=== PATIENT | male | born 1960 | race Caucasian/White ===

== ENCOUNTER 2017-10-02 18:43 | Inpatient (IN) ==
[2017-10-02] MEDS ORDERED: Sod Chloride 0.9% Inj 1,000 ML IV.SIG ONE (19:26)
[2017-10-02] MEDS ORDERED: Sod Chloride 0.9% Inj 1,000 ML IV.SIG SCH (19:45)
--- NOTE | 2017-10-02 20:08 | ED ---
HPI General Chief complaint: Neuro Symptoms/Deficit Stated complaint: Medical/evac Time Seen by Provider: 10/02/17 19:12 History of Present Illness HPI narrative: Is a 57-year-old man presents to the emergency department brought in by his sister and use. They called the ambulance today because he was having bizarre behavior. It sounds like he has a history of psychiatric disease past as well as alcoholism. [place], but moved back down to [place] to be closer to his ex- and sister. He apparently has been sober for the past 10 years. He has been back down here about a year or so. Over the past week or so, his sister and got progressively more irrational messages, and flew down here to bring him back home. Today they report that he has been very bizarre, talking more about God in his mission, not eating or sleeping, and had a sort of anxiety attack episode where he could not get words out and was stuttering and panicky which is why they called the ambulance. He has had trouble with bizarre behavior in the past, patient self reports he has been diagnosed with bipolar disorder. He has been on medications for his mood in the past. He has never been hospitalized except for being in rehab for alcoholism. 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 Related Data Home Medications Medication Instructions Recorded Confirmed aspirin 81 mg PO DAILY 10/03/17 10/03/17 Allergies Allergy/AdvReac Type Severity Reaction Status Date / Time No Known Allergies Allergy Verified 10/02/17 18:50 Review of Systems ROS Unobtainable All other systems reviewed negative except as stated in HPI [facility] Medical History Medical History Patient denies medical problems (Acute) Surgical History Surgical History No history of previous surgery (Acute) Social History Social History Substance History: Past History Second Hand Smoke Exposure: No Smoking Status: Heavy tobacco smoker Tobacco Type: Cigarettes How Often Do You Have a Drink Containing Alcohol: Never Recent Travel in [facility] within the Last 8 Weeks: No Recent Out of Country Travel within the Last 8 Weeks: No Immunization History Tetanus Immunization: Unsure Hx Influenza Vaccine This Season: No Exam Narrative Exam Narrative: GENERAL: 57-year-old man, anxious, little bit jittery, a little bit bizarre. SKIN: Focused skin assessment warm/dry. HEAD: Atraumatic. Normocephalic. EYES: Pupils equal and round. No scleral icterus. No injection or drainage. ENT: No nasal bleeding or discharge. Mucous membranes pink and moist. NECK: Trachea midline. No JVD. CARDIOVASCULAR: Regular rate and rhythm. No murmur appreciated. RESPIRATORY: No accessory muscle use. Clear to auscultation. Breath sounds equal bilaterally. GASTROINTESTINAL: Abdomen soft, non-tender, nondistended. Hepatic and splenic margins not palpable. MUSCULOSKELETAL: No obvious deformities. No clubbing. No cyanosis. No edema. NEUROLOGICAL: Awake and alert. No obvious cranial nerve deficits. Motor grossly within normal limits. Normal speech. PSYCHIATRIC: Little bit bizarre. Very hyper muslim. Patient states this is a significant change from his baseline. Somewhat grandiose. Rapid pressured speech intermittent with periods of stuttering and tearfulness. Patient initially endorsed hallucinations, but then could not really clarify anything further. No natalia delusions. Is not clearly responding to any internal stimuli. Not frankly psychotic. Course Initial Documented Vital Signs Temperature 98.3 F 10/02/17 18:51 Pulse Rate 92 H 10/02/17 18:51 Respiratory Rate 17 10/02/17 18:51 Blood Pressure 153/86 H 10/02/17 18:51 Pulse Oximetry 97 10/02/17 18:51 Last Documented Vital Signs Temperature 98.2 F 10/04/17 05:59 Pulse Rate 85 10/04/17 05:59 Respiratory Rate 16 10/04/17 05:59 Blood Pressure 128/75 10/04/17 05:59 Pulse Oximetry 100 10/04/17 05:59 Medical Decision Making MDM Narrative Medical decision making narrative: 57-year-old man presents to the emergency department with unusual behavior and stuttering/word finding difficulties. This seems to be very psychiatric in nature. I do not think this is aphasia or neurologic. He has a prodrome of more bizarre behavior in the setting as well. Something is not really eating or sleeping. He seems grandiose and religiously preoccupied and I think he is likely manic. Will check CT had basic labs drug screen and alcohol. He denies alcohol or drug use now. Likely will need psychiatric evaluation and probable admission for stabilization. Lab Data Result diagrams: 10/02/17 19:35 10/02/17 19:35 Lab Results 10/02/17 10/02/17 10/02/17 Range/Units 19:35 19:35 19:35 WBC 7.1 (4.0-11.0) th/mm3 RBC 4.85 (4.50-5.90) mil/mm3 Hgb 15.2 (13.0-17.0) gm/dL Hct 43.7 (39.0-51.0) % MCV 90.2 (80.0-100.0) fL MCH 31.4 (27.0-34.0) pg MCHC 34.8 (32.0-36.0) % RDW 13.5 (11.6-17.2) % Plt Count 204 (150-450) th/mm3 MPV 8.2 (7.0-11.0) fL Neut % (Auto) 59.9 (16.0-70.0) % Lymph % (Auto) 32.2 (9.0-44.0) % Kings % (Auto) 6.6 (0.0-8.0) % Eos % (Auto) 0.8 (0.0-4.0) % Baso % (Auto) 0.5 (0.0-2.0) % Neut # (Auto) 4.2 (1.8-7.7) th/mm3 Lymph # (Auto) 2.3 (1.0-4.8) th/mm3 Kings # (Auto) 0.5 (0.0-0.9) th/mm3 Eos # (Auto) 0.1 (0.0-0.4) th/mm3 Baso # (Auto) 0.0 (0.0-0.2) th/mm3 WBC Differential . Differential Comment Auto diff final PT 10.9 (9.8-11.6) sec INR 1.1 Ratio APTT 27.8 (24.3-30.1) sec Sodium 139 (136-145) meq/L Potassium 3.4 L (3.5-5.1) meq/L Chloride 107 (98-107) meq/L Carbon Dioxide 21.1 (21.0-32.0) meq/L Anion Gap 11 (5-15) meq/L BUN 13 (7-18) mg/dL Creatinine 0.67 (0.60-1.30) mg/dL Estimated GFR Greater than 89 (>89) mL/min POC Glucose (68-110) mg/dl Random Glucose 86 (74-106) mg/dL Calcium 8.5 (8.5-10.1) mg/dL Total Bilirubin 0.4 (0.2-1.0) mg/dL AST 27 (15-37) U/L ALT 27 (12-78) U/L Alkaline Phosphatase 84 (45-117) U/L Troponin I Less than 0.02 L (0.02-0.05) ng/mL Total Protein 7.4 (6.4-8.2) g/dL Albumin 4.1 (3.4-5.0) g/dL Urine Color (Yellw/Straw) Urine Clarity (Clear) Urine pH (5.0-8.5) Ur Specific Grant (1.002-1.035) Urine Protein (Neg-Trace) mg/dL Urine Glucose (UA) (Negative) mg/dL Urine Ketones (Negative) mg/dL Urine Occult Blood (Negative) Urine Nitrate (Negative) Urine Bilirubin (Negative) Urine Urobilinogen (Less than 2) mg/dL Ur Leukocyte Esterase (Negative) Urine RBC (0-3) /hpf Urine WBC (0-5) /hpf Urine Mucus (Occasional) /lpf Micro UA Comment Urine Culture Comments Urine Opiates Screen (Neg) Ur Barbiturates Screen (Neg) Ur Amphetamines Screen (Neg) U Benzodiazepines Scrn (Neg) Urine Cocaine Screen (Neg) U Cannabinoids Screen (Neg) Serum Alcohol Less than 3 (0-5) mg/dL Blood Type Blood Type Recheck Antibody Screen 10/02/17 10/02/17 10/02/17 Range/Units 19:35 19:49 19:55 WBC (4.0-11.0) th/mm3 RBC (4.50-5.90) mil/mm3 Hgb (13.0-17.0) gm/dL Hct (39.0-51.0) % MCV (80.0-100.0) fL MCH (27.0-34.0) pg MCHC (32.0-36.0) % RDW (11.6-17.2) % Plt Count (150-450) th/mm3 MPV (7.0-11.0) fL Neut % (Auto) (16.0-70.0) % Lymph % (Auto) (9.0-44.0) % Kings % (Auto) (0.0-8.0) % Eos % (Auto) (0.0-4.0) % Baso % (Auto) (0.0-2.0) % Neut # (Auto) (1.8-7.7) th/mm3 Lymph # (Auto) (1.0-4.8) th/mm3 Kings # (Auto) (0.0-0.9) th/mm3 Eos # (Auto) (0.0-0.4) th/mm3 Baso # (Auto) (0.0-0.2) th/mm3 WBC Differential Differential Comment PT (9.8-11.6) sec INR Ratio APTT (24.3-30.1) sec Sodium (136-145) meq/L Potassium (3.5-5.1) meq/L Chloride (98-107) meq/L Carbon Dioxide (21.0-32.0) meq/L Anion Gap (5-15) meq/L BUN (7-18) mg/dL Creatinine (0.60-1.30) mg/dL Estimated GFR (>89) mL/min POC Glucose 84 (68-110) mg/dl Random Glucose (74-106) mg/dL Calcium (8.5-10.1) mg/dL Total Bilirubin (0.2-1.0) mg/dL AST (15-37) U/L ALT (12-78) U/L Alkaline Phosphatase (45-117) U/L Troponin I (0.02-0.05) ng/mL Total Protein (6.4-8.2) g/dL Albumin (3.4-5.0) g/dL Urine Color Deisy (Yellw/Straw) Urine Clarity Hazy H (Clear) Urine pH 5.0 (5.0-8.5) Ur Specific Grant 1.030 (1.002-1.035) Urine Protein Negative (Neg-Trace) mg/dL Urine Glucose (UA) Negative (Negative) mg/dL Urine Ketones 20 (Negative) mg/dL Urine Occult Blood Negative (Negative) Urine Nitrate Negative (Negative) Urine Bilirubin Negative (Negative) Urine Urobilinogen 4 or greater (Less than 2) mg/dL Ur Leukocyte Esterase Negative (Negative) Urine RBC 1 (0-3) /hpf Urine WBC 1 (0-5) /hpf Urine Mucus Few H (Occasional) /lpf Micro UA Comment Culture not ind Urine Culture Comments Culture not ind Urine Opiates Screen (Neg) Ur Barbiturates Screen (Neg) Ur Amphetamines Screen (Neg) U Benzodiazepines Scrn (Neg) Urine Cocaine Screen (Neg) U Cannabinoids Screen (Neg) Serum Alcohol (0-5) mg/dL Blood Type O Positive Blood Type Recheck Required Antibody Screen Negative 10/02/17 Range/Units 19:55 WBC (4.0-11.0) th/mm3 RBC (4.50-5.90) mil/mm3 Hgb (13.0-17.0) gm/dL Hct (39.0-51.0) % MCV (80.0-100.0) fL MCH (27.0-34.0) pg MCHC (32.0-36.0) % RDW (11.6-17.2) % Plt Count (150-450) th/mm3 MPV (7.0-11.0) fL Neut % (Auto) (16.0-70.0) % Lymph % (Auto) (9.0-44.0) % Kings % (Auto) (0.0-8.0) % Eos % (Auto) (0.0-4.0) % Baso % (Auto) (0.0-2.0) % Neut # (Auto) (1.8-7.7) th/mm3 Lymph # (Auto) (1.0-4.8) th/mm3 Kings # (Auto) (0.0-0.9) th/mm3 Eos # (Auto) (0.0-0.4) th/mm3 Baso # (Auto) (0.0-0.2) th/mm3 WBC Differential Differential Comment PT (9.8-11.6) sec INR Ratio APTT (24.3-30.1) sec Sodium (136-145) meq/L Potassium (3.5-5.1) meq/L Chloride (98-107) meq/L Carbon Dioxide (21.0-32.0) meq/L Anion Gap (5-15) meq/L BUN (7-18) mg/dL Creatinine (0.60-1.30) mg/dL Estimated GFR (>89) mL/min POC Glucose (68-110) mg/dl Random Glucose (74-106) mg/dL Calcium (8.5-10.1) mg/dL Total Bilirubin (0.2-1.0) mg/dL AST (15-37) U/L ALT (12-78) U/L Alkaline Phosphatase (45-117) U/L Troponin I (0.02-0.05) ng/mL Total Protein (6.4-8.2) g/dL Albumin (3.4-5.0) g/dL Urine Color (Yellw/Straw) Urine Clarity (Clear) Urine pH (5.0-8.5) Ur Specific Grant (1.002-1.035) Urine Protein (Neg-Trace) mg/dL Urine Glucose (UA) (Negative) mg/dL Urine Ketones (Negative) mg/dL Urine Occult Blood (Negative) Urine Nitrate (Negative) Urine Bilirubin (Negative) Urine Urobilinogen (Less than 2) mg/dL Ur Leukocyte Esterase (Negative) Urine RBC (0-3) /hpf Urine WBC (0-5) /hpf Urine Mucus (Occasional) /lpf Micro UA Comment Urine Culture Comments Urine Opiates Screen Neg (Neg) Ur Barbiturates Screen Neg (Neg) Ur Amphetamines Screen Neg (Neg) U Benzodiazepines Scrn Neg (Neg) Urine Cocaine Screen Neg (Neg) U Cannabinoids Screen Pos H (Neg) Serum Alcohol (0-5) mg/dL Blood Type Blood Type Recheck Antibody Screen Imaging Data Radiologist's impression: Chest X-Ray 10/02/17 19:26 CONCLUSION: Negative for an acute process Head CT 10/02/17 19:26 CONCLUSION: 1. Negative for an acute process. . ECG Data EKG Prior to Arrival: No Attestation: I personally reviewed and interpreted this ECG as follows: Interpretation: Normal sinus rhythm at a rate of 77, little bit of sinus arrhythmia, no acute ischemia. Discharge Plan Discharge Disposition Patient Disposition: 30 Still Patient Physicians Team ED Provider: Seferino Briones Primary Care Provider: Primary Care Mariana Cook Attending Provider: Jimmy Truong Other Providers: Doug Fletcher ; Shimon Loera Discharge Interventions Interventions: ED Discharge Assessment Last Done: 10/03/17 14:53 Vital Signs Last Done: 10/03/17 09:00 Status ED Status: Left Department Discharge Information Discharge Date/Time: 10/03/17 14:56
--- NOTE | 2017-10-02 20:27 | XR ---
EXAM DATE: 10/02/2017 8:07 PM EDT AGE/SEX: 57 years / Male INDICATIONS: CVA. Patient suddenly started stuttering while talking earlier today. CLINICAL DATA: This is the patient's initial encounter. Patient reports that signs and symptoms have been present for 1 day and indicates a pain score of 0/10. MEDICAL/SURGICAL HISTORY: None. None. COMPARISON: No prior exams available for comparison. FINDINGS: A single AP view of the chest demonstrates the lungs to be symmetrically aerated without evidence of mass, infiltrate or effusion. The cardiomediastinal contours are unremarkable. Osseous structures a re intact. CONCLUSION: Negative for an acute process Electronically signed by: Kevin Cooper MD 10/02/2017 8:26 PM EDT
[2017-10-02 20:28] LABS: Baso % (Auto) 0.5 % (0.0-2.0); Eos # (Auto) 0.1 th/mm3 (0.0-0.4); Eos % (Auto) 0.8 % (0.0-4.0); Hematocrit 43.7 % (39.0-51.0); Hemoglobin 15.2 gm/dL (13.0-17.0); Lymph # (Auto) 2.3 th/mm3 (1.0-4.8); Lymph % (Auto) 32.2 % (9.0-44.0); Mean Corpuscular HGB Conc 34.8 % (32.0-36.0); Mean Corpuscular Hemoglobin 31.4 pg (27.0-34.0); Mean Corpuscular Volume 90.2 fL (80.0-100.0); Mean Platelet Volume 8.2 fL (7.0-11.0); Mono # (Auto) 0.5 th/mm3 (0.0-0.9); Mono % (Auto) 6.6 % (0.0-8.0); Neut # (Auto) 4.2 th/mm3 (1.8-7.7); Neut % (Auto) 59.9 % (16.0-70.0); Platelet Count 204 th/mm3 (150-450); Red Blood Count 4.85 mil/mm3 (4.50-5.90); Red Cell Distribution Width 13.5 % (11.6-17.2); White Blood Count 7.1 th/mm3 (4.0-11.0)
[2017-10-02 20:32] LABS: Bilirubin,Urine Negative (Negative); Clarity,Urine Hazy (Clear); Color,Urine Amber (Yellw/Straw); Glucose,Urine (UA) Negative (Negative); Leukocyte Esterase,Urine Negative (Negative); Mucus,Urine Few /lpf (Occasional); Nitrite,Urine Negative (Negative); Urobilinogen,Urine 4 or Greater mg/dL (Less than 2)
--- NOTE | 2017-10-02 20:32 | CT ---
EXAM DATE: 10/02/2017 8:08 PM EDT AGE/SEX: 57 years / Male INDICATIONS: Altered mental status. CLINICAL DATA: This is the patient's initial encounter. Patient reports that signs and symptoms have been present for 1 day and indicates a pain score of 0/10. MEDICAL/SURGICAL HISTORY: None. None. RADIATION DOSE: 56.25 CTDI (mGy) COMPARISON: No prior exams available for comparison. TECHNIQUE: CT of the head without contrast. Using automated exposure control and adjustment of the mA and/or kV according to patient size, radiation dose was kept as low as reasonably achievable to ob tain optimal diagnostic quality images. DICOM format image data is available electronically for revi ew and comparison. FINDINGS: Cerebrum: The ventricles are normal for age. No evidence of midline shift, mass lesion, hemorrhage or acute infarction. No extraaxial fluid collections are seen. Posterior Fossa: The cerebellum and brainstem are intact. The 4th ventricle is midline. The cerebe llopontine angle is unremarkable. Extracranial: The visualized portion of the orbits is intact. Skull: The calvaria is intact. No evidence of skull fracture. CONCLUSION: 1. Negative for an acute process. . Electronically signed by: Kevin Cooper MD 10/02/2017 8:31 PM EDT
[2017-10-02 20:35] LABS: Amphetamine Screen,Urine Neg (Neg); Barbiturate Screen,Urine Neg (Neg); Cannabinoid Screen,Urine Pos (Neg); Cocaine Screen,Urine Neg (Neg)
[2017-10-02 20:38] LABS: Opiate Screen,Urine Neg (Neg)
[2017-10-02 20:40] LABS: Activated Partial Thrombo Time 27.8 sec (24.3-30.1); INR 1.1 Ratio; Prothrombin Time 10.9 sec (9.8-11.6)
[2017-10-02 20:46] LABS: Albumin 4.1 g/dL (3.4-5.0); Anion Gap 11 meq/L (5-15); Aspartate Aminotransferase 27 U/L (15-37); Blood Urea Nitrogen 13 mg/dL (7-18); Calcium 8.5 mg/dL (8.5-10.1); Carbon Dioxide 21.1 meq/L (21.0-32.0); Chloride 107 meq/L (98-107); Glomerular Filtration Rate Greater Than 89 mL/min (>89); Glucose,Random 86 mg/dL (74-106); Potassium 3.4 meq/L (3.5-5.1); Sodium 139 meq/L (136-145)
[2017-10-02 20:47] LABS: Alanine Aminotransferase 27 U/L (12-78)
[2017-10-02 20:50] LABS: Alkaline Phosphatase 84 U/L (45-117); Total Protein 7.4 g/dL (6.4-8.2)
--- NOTE | 2017-10-03 11:14 | ED ---
HPI - Psych - General Source: patient Mode of arrival: ambulatory Limitations: no limitations - History of Present Illness complaint: feels depressed Onset (ago): unknown Duration: getting worse History of same: Yes Relieving factors: none Exacerbating factors: none Associated psychiatric symptoms: none Associated symptoms: denies other symptoms - General Chief Complaint: Neuro Symptoms/Deficit Stated Complaint: Medical/evac Time Seen by Provider: 10/02/17 19:12 - History of Present Illness HPI Narrative: This is a 57-year-old , male who presents voluntarily to this facility for what his sister reports is increasing bizarre behavior. Patient is previously unknown to this facility. Reviewed electronic medical record, labs, and discussed case with staff. Patient's toxicology screen is positive for cannabinoids. Patient was assessed in his room in the main ED. He is found to be awake, alert, and oriented 4. He endorses intermittent suicidal ideation however, he denies it at this moment. He does state that he would never "kill myself". He denies homicidal ideation. He reports intermittent auditory hallucinations but then goes on later to state that he feels it is more of an internal dialogue with himself. He endorses visual hallucinations however, when asked to elaborate he states, "sometimes I do see shadows but I think everyone does". He does exhibit some paranoid delusions stating that he believes his "boss his from [facility]Note 3] and her sisters are crazy and they are putting something in my food and cigarettes, I think they are trying to poison me." His speech is rapid and somewhat pressured. During the evaluation he is extremely labile in his mood and affect. He initially was quite pleasant and upbeat but then later in the conversation he seemed to have some thought blocking. He began to exhibit the stuttering which had been reported by his sister and himself. When asked what happened he stated that he has "racing thoughts". Later in the interview he put his head down and began crying and became distraught. When asked if he feels safe here he responded "yes, I feel safe and I feel like someone is going to take me away from it". When asked why he was here the patient responded, "I was stuttering and I kept saying uh, I could not say what I wanted. My sister will not listen to me and sometimes when she won't listen to me I have trouble finding my words". He denies any previous suicidal attempts although he does have a brother whom he reports attempted suicide. He also relays that his daughter has a diagnosis of Bipolar Disorder. He denies any previous inpatient admissions for psychiatric issues however, he does state that he has been treated on two different occasions outpatient for what he describes as "anxiety and a nervous breakdown" . He states that both times he was started on a medication which caused him to have diarrhea so he stopped taking them. He was unable to relay the name of the medication. When asked about a strong conviction that he would "never kill myself". He initially began having conversation about how people are " repressed and kept down in life" that did not seem apropos to the question at hand. I repeated the question and again got the same answer. I attempted to rephrase it at which point I mentioned that some people due to yarsanism state that they would never kill themselves at which point he exclaimed "God". When asked if he was strong in his priscila he responded "I have just come into it". He advises that he lives with a "longtime friend" who attends [employer] and he intends to start going with her. 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 He does advise he had a previous history of chronic alcoholism and his last drink was August [id number]. He also admits to heavy illicit substance use in the past but, denies using drugs at this time. Again, his tox screen is positive for cannabinoids. He states that he completed the 12th grade and attended some trade school. He reports that he has trouble sleeping and only sleeps approximately 2-4 hours per night and has had a decreased appetite. (Charu Garzon) - Related Data Home Medications Medication Instructions Recorded Confirmed aspirin 81 mg PO DAILY 10/03/17 10/03/17 Allergies Allergy/AdvReac Type Severity Reaction Status Date / Time No Known Allergies Allergy Verified 10/02/17 18:50 Review of Systems All other systems reviewed negative except as stated in HPI [facility] - History History Provided By: Patient - Medical History Medical History: Medical History (Last Reviewed 10/03/17 @ 11:11 by Charu Garzon [facility]) Patient denies medical problems - Surgical History Surgical History: Surgical History (Last Reviewed 10/03/17 @ 11:11 by TAVON Alejandro) No history of previous surgery - Tobacco History Second Hand Smoke Exposure: No Smoking Status: Never smoker - Alcohol History How Often Do You Have a Drink Containing Alcohol: Never - Substance Use History Substance History: No History of Abuse - Travel History Recent Travel in the [place] Within the Last 8 Weeks: No Recent Travel Out of the Country Within the Last 8 Weeks: No - Immunization History Tetanus Immunization: Unsure Hx Influenza Vaccine This Season: No Psychiatric History - Psychiatric History Psychiatric Treatment History: History Substance Abuse Treatment, History of Community Mental Health Treatment, Denies Previous Treatment History of Inpatient Treatment: No Firearms in Home: No - Legal History Multiple DUIs in the past. (Charu Garzon) - Family Psychiatric History Brother attempted suicide. Daughter diagnosed with bipolar disorder. (Charu Garzon) Physical Exam - General Limitations: no limitations General appearance: alert - Head Head exam: atraumatic - Expanded Neurological Exam Eye Opening: Spontaneous Verbal Response: Oriented Motor Response: Obey commands Glascow Coma Scale Total: 15 - Psychiatric Psychiatric exam: Present: manic Mental Status Examination Appearance: Disheveled Consciousness: Alert Orientation: x4 Motor Activity: Normal gait Speech: Pressured, Rapid, Stuttering (at times) Language: Other (patient speaking fluently ) Fund of Knowledge: Adequate Attention and Concentration: Easily distracted Memory: Unremarkable Mood: Anxious, Manic Affect: Labile, Anxious Thought Process & Associations: Circumstantial, Tangential Thought Content: Racing thoughts, Delusional Hallucination Type: None Delusion Type: Paranoid Suicidal Ideation: No Suicidal Plan: No Suicidal Intention: No Homicidal Ideation: No Homicidal Plan: No Homicidal Intention: No Insight: Fair Judgment: Impulsive Initial Documented Vital Signs Temperature 98.3 F 10/02/17 18:51 Pulse Rate 92 H 10/02/17 18:51 Respiratory Rate 17 10/02/17 18:51 Blood Pressure 153/86 H 10/02/17 18:51 Pulse Oximetry 97 10/02/17 18:51 Last Documented Vital Signs Temperature 98.1 F 10/03/17 09:00 Pulse Rate 78 10/03/17 09:00 Respiratory Rate 16 10/03/17 09:00 Blood Pressure 133/81 10/03/17 09:00 Pulse Oximetry 99 10/03/17 09:00 MDM - Psych - Diagnosis (1) Kat Status: Acute - Differential Diagnosis Likely: acute psychosis, bipolar disorder - Lab Data Result diagrams: 10/02/17 19:35 10/02/17 19:35 - [facility] Narrative Medical decision making narrative: Given the patient's intermittent disorganized state, his apparent paranoid delusions, and his family's statement that he has had a dramatic recent change he [facility] for further evaluation and treatment as deemed necessary. I have obtained consent from the patient for medications and will start him on a 25 mg PO AM and 50 mg PO HS dose of Seroquel to target his insomnia and manic symptoms, as well as the paranoid delusion. Consulted with Dr Truong who concurs with this treatment plan. (Charu Garzon) - Lab Data Lab Results 10/02/17 10/02/17 10/02/17 Range/Units 19:35 19:35 19:35 WBC 7.1 (4.0-11.0) th/mm3 RBC 4.85 (4.50-5.90) mil/mm3 Hgb 15.2 (13.0-17.0) gm/dL Hct 43.7 (39.0-51.0) % MCV 90.2 (80.0-100.0) fL MCH 31.4 (27.0-34.0) pg MCHC 34.8 (32.0-36.0) % RDW 13.5 (11.6-17.2) % Plt Count 204 (150-450) th/mm3 MPV 8.2 (7.0-11.0) fL Neut % (Auto) 59.9 (16.0-70.0) % Lymph % (Auto) 32.2 (9.0-44.0) % Park % (Auto) 6.6 (0.0-8.0) % Eos % (Auto) 0.8 (0.0-4.0) % Baso % (Auto) 0.5 (0.0-2.0) % Neut # (Auto) 4.2 (1.8-7.7) th/mm3 Lymph # (Auto) 2.3 (1.0-4.8) th/mm3 Park # (Auto) 0.5 (0.0-0.9) th/mm3 Eos # (Auto) 0.1 (0.0-0.4) th/mm3 Baso # (Auto) 0.0 (0.0-0.2) th/mm3 WBC Differential . Differential Comment Auto diff final PT 10.9 (9.8-11.6) sec INR 1.1 Ratio APTT 27.8 (24.3-30.1) sec Sodium 139 (136-145) meq/L Potassium 3.4 L (3.5-5.1) meq/L Chloride 107 (98-107) meq/L Carbon Dioxide 21.1 (21.0-32.0) meq/L Anion Gap 11 (5-15) meq/L BUN 13 (7-18) mg/dL Creatinine 0.67 (0.60-1.30) mg/dL Estimated GFR Greater than 89 (>89) mL/min POC Glucose (68-110) mg/dl Random Glucose 86 (74-106) mg/dL Calcium 8.5 (8.5-10.1) mg/dL Total Bilirubin 0.4 (0.2-1.0) mg/dL AST 27 (15-37) U/L ALT 27 (12-78) U/L Alkaline Phosphatase 84 (45-117) U/L Troponin I Less than 0.02 L (0.02-0.05) ng/mL Total Protein 7.4 (6.4-8.2) g/dL Albumin 4.1 (3.4-5.0) g/dL Urine Color (Yellw/Straw) Urine Clarity (Clear) Urine pH (5.0-8.5) Ur Specific Bonner (1.002-1.035) Urine Protein (Neg-Trace) mg/dL Urine Glucose (UA) (Negative) mg/dL Urine Ketones (Negative) mg/dL Urine Occult Blood (Negative) Urine Nitrate (Negative) Urine Bilirubin (Negative) Urine Urobilinogen (Less than 2) mg/dL Ur Leukocyte Esterase (Negative) Urine RBC (0-3) /hpf Urine WBC (0-5) /hpf Urine Mucus (Occasional) /lpf Micro UA Comment Urine Culture Comments Urine Opiates Screen (Neg) Ur Barbiturates Screen (Neg) Ur Amphetamines Screen (Neg) U Benzodiazepines Scrn (Neg) Urine Cocaine Screen (Neg) U Cannabinoids Screen (Neg) Serum Alcohol Less than 3 (0-5) mg/dL Blood Type Blood Type Recheck Antibody Screen 10/02/17 10/02/17 10/02/17 Range/Units 19:35 19:49 19:55 WBC (4.0-11.0) th/mm3 RBC (4.50-5.90) mil/mm3 Hgb (13.0-17.0) gm/dL Hct (39.0-51.0) % MCV (80.0-100.0) fL MCH (27.0-34.0) pg MCHC (32.0-36.0) % RDW (11.6-17.2) % Plt Count (150-450) th/mm3 MPV (7.0-11.0) fL Neut % (Auto) (16.0-70.0) % Lymph % (Auto) (9.0-44.0) % Park % (Auto) (0.0-8.0) % Eos % (Auto) (0.0-4.0) % Baso % (Auto) (0.0-2.0) % Neut # (Auto) (1.8-7.7) th/mm3 Lymph # (Auto) (1.0-4.8) th/mm3 Park # (Auto) (0.0-0.9) th/mm3 Eos # (Auto) (0.0-0.4) th/mm3 Baso # (Auto) (0.0-0.2) th/mm3 WBC Differential Differential Comment PT (9.8-11.6) sec INR Ratio APTT (24.3-30.1) sec Sodium (136-145) meq/L Potassium (3.5-5.1) meq/L Chloride (98-107) meq/L Carbon Dioxide (21.0-32.0) meq/L Anion Gap (5-15) meq/L BUN (7-18) mg/dL Creatinine (0.60-1.30) mg/dL Estimated GFR (>89) mL/min POC Glucose 84 (68-110) mg/dl Random Glucose (74-106) mg/dL Calcium (8.5-10.1) mg/dL Total Bilirubin (0.2-1.0) mg/dL AST (15-37) U/L ALT (12-78) U/L Alkaline Phosphatase (45-117) U/L Troponin I (0.02-0.05) ng/mL Total Protein (6.4-8.2) g/dL Albumin (3.4-5.0) g/dL Urine Color Deisy (Yellw/Straw) Urine Clarity Hazy H (Clear) Urine pH 5.0 (5.0-8.5) Ur Specific Bonner 1.030 (1.002-1.035) Urine Protein Negative (Neg-Trace) mg/dL Urine Glucose (UA) Negative (Negative) mg/dL Urine Ketones 20 (Negative) mg/dL Urine Occult Blood Negative (Negative) Urine Nitrate Negative (Negative) Urine Bilirubin Negative (Negative) Urine Urobilinogen 4 or greater (Less than 2) mg/dL Ur Leukocyte Esterase Negative (Negative) Urine RBC 1 (0-3) /hpf Urine WBC 1 (0-5) /hpf Urine Mucus Few H (Occasional) /lpf Micro UA Comment Culture not ind Urine Culture Comments Culture not ind Urine Opiates Screen (Neg) Ur Barbiturates Screen (Neg) Ur Amphetamines Screen (Neg) U Benzodiazepines Scrn (Neg) Urine Cocaine Screen (Neg) U Cannabinoids Screen (Neg) Serum Alcohol (0-5) mg/dL Blood Type O Positive Blood Type Recheck Required Antibody Screen Negative 10/02/17 Range/Units 19:55 WBC (4.0-11.0) th/mm3 RBC (4.50-5.90) mil/mm3 Hgb (13.0-17.0) gm/dL Hct (39.0-51.0) % MCV (80.0-100.0) fL MCH (27.0-34.0) pg MCHC (32.0-36.0) % RDW (11.6-17.2) % Plt Count (150-450) th/mm3 MPV (7.0-11.0) fL Neut % (Auto) (16.0-70.0) % Lymph % (Auto) (9.0-44.0) % Park % (Auto) (0.0-8.0) % Eos % (Auto) (0.0-4.0) % Baso % (Auto) (0.0-2.0) % Neut # (Auto) (1.8-7.7) th/mm3 Lymph # (Auto) (1.0-4.8) th/mm3 Park # (Auto) (0.0-0.9) th/mm3 Eos # (Auto) (0.0-0.4) th/mm3 Baso # (Auto) (0.0-0.2) th/mm3 WBC Differential Differential Comment PT (9.8-11.6) sec INR Ratio APTT (24.3-30.1) sec Sodium (136-145) meq/L Potassium (3.5-5.1) meq/L Chloride (98-107) meq/L Carbon Dioxide (21.0-32.0) meq/L Anion Gap (5-15) meq/L BUN (7-18) mg/dL Creatinine (0.60-1.30) mg/dL Estimated GFR (>89) mL/min POC Glucose (68-110) mg/dl Random Glucose (74-106) mg/dL Calcium (8.5-10.1) mg/dL Total Bilirubin (0.2-1.0) mg/dL AST (15-37) U/L ALT (12-78) U/L Alkaline Phosphatase (45-117) U/L Troponin I (0.02-0.05) ng/mL Total Protein (6.4-8.2) g/dL Albumin (3.4-5.0) g/dL Urine Color (Yellw/Straw) Urine Clarity (Clear) Urine pH (5.0-8.5) Ur Specific Bonner (1.002-1.035) Urine Protein (Neg-Trace) mg/dL Urine Glucose (UA) (Negative) mg/dL Urine Ketones (Negative) mg/dL Urine Occult Blood (Negative) Urine Nitrate (Negative) Urine Bilirubin (Negative) Urine Urobilinogen (Less than 2) mg/dL Ur Leukocyte Esterase (Negative) Urine RBC (0-3) /hpf Urine WBC (0-5) /hpf Urine Mucus (Occasional) /lpf Micro UA Comment Urine Culture Comments Urine Opiates Screen Neg (Neg) Ur Barbiturates Screen Neg (Neg) Ur Amphetamines Screen Neg (Neg) U Benzodiazepines Scrn Neg (Neg) Urine Cocaine Screen Neg (Neg) U Cannabinoids Screen Pos H (Neg) Serum Alcohol (0-5) mg/dL Blood Type Blood Type Recheck Antibody Screen
[2017-10-03] MEDS ORDERED: LORazepam 1 MG Tablet PO PRN (11:32)
[2017-10-03] MEDS ORDERED: Aluminum/Magnesium/Simethacone Susp 30 ML UDC PO PRN (11:32)
--- NOTE | 2017-10-03 22:01 | ECG ---
Date Performed: 10/02/2017 Time Performed: 21:53:17 PTAGE: 57 years EKG: Sinus rhythm WITH SINUS ARRHYTHMIA POSSIBLE RIGHT VENTRICULAR CONDUCTION DELAY BORDERLINE ECG NO PREVIOUS TRACING DOCTOR: Hector Alejo Interpretating Date/Time 10/03/2017 21:59:30
[2017-10-04 08:31] LABS: Anion Gap 8 meq/L (5-15); Blood Urea Nitrogen 7 mg/dL (7-18); Calcium 8.8 mg/dL (8.5-10.1); Carbon Dioxide 25.5 meq/L (21.0-32.0); Chloride 109 meq/L (98-107); Cholesterol 114 mg/dL (120-200); Glomerular Filtration Rate Greater Than 89 mL/min (>89); Glucose,Random 92 mg/dL (74-106); Potassium 3.5 meq/L (3.5-5.1); Sodium 142 meq/L (136-145)
[2017-10-04 08:32] LABS: Triglycerides 68 mg/dL (42-150)
[2017-10-04 08:34] LABS: Chol/HDL Ratio 2.03 Ratio; HDL Cholesterol 56.1 mg/dL (40.0-60.0); LDL Cholesterol,Calculated 44 mg/dL (0-99)
--- NOTE | 2017-10-04 09:10 | P.CONNEU ---
History of Present Illness Service: Neurology Primary Care Provider: No Primary Care Physician Chief Complaint: Question seizure History of Present Illness: 57-year-old male admitted to psych inpatient [facility] for delusional behavior. Flight of ideas grandiose thoughts noted by family brought in further evaluation. Neurology consulted for questionable seizure. CT brain scan negative for any acute lesion. Labs have been normal except urine drug screen positive for cannabis. Review of Systems All other systems reviewed negative except as stated in HPI [facility] - History History Provided By: Patient - Medical History Medical History: Medical History (Last Reviewed 10/03/17 @ 11:11 by TAVON Alejandro) Patient denies medical problems - Surgical History Surgical History: Surgical History (Last Reviewed 10/03/17 @ 11:11 by TAVON Alejandro) No history of previous surgery - Tobacco History Second Hand Smoke Exposure: No Tobacco Use In Past 30 Days: Yes Smoking Status: Heavy tobacco smoker Tobacco Type: Cigarettes - Alcohol History How Often Do You Have a Drink Containing Alcohol: Never - Substance Use History Substance History: Past History - Substance Use Type Alcohol Status: Sustained Remission Route Used: By Mouth Last Used: 10 years ago Comment: completed rehab in 2007 in [place] for etoh abuse - Travel History Recent Travel in the [facility] Within the Last 8 Weeks: No Recent Travel Out of the Country Within the Last 8 Weeks: No - Immunization History Tetanus Immunization: Unsure Hx Influenza Vaccine This Season: No Medications and Allergies Active Medications: Active Medications Al Hydrox/Mg Hydrox/Simethicone (Mag-Al Plus Susp Liq) 30 ml PO Q6H PRN PRN Reason: DYSPEPSIA Diphenhydramine HCl (Benadryl) 50 mg PO HS PRN PRN Reason: INSOMNIA Lorazepam (Ativan Inj) 1 mg IV.PUSH ONCE GINA Last Admin: 10/02/17 19:51 Dose: 1 mg Lorazepam (Ativan) 1 mg PO Q6H PRN PRN Reason: MODERATE TO SEVERE ANXIETY Last Admin: 10/04/17 00:38 Dose: 1 mg Lorazepam (Ativan Inj) 1 mg IM Q6H PRN PRN Reason: MODERATE TO SEVERE ANXIETY Nicotine (Habitrol 21 Mg Patch.24 Hr) 1 patch T-DERMAL DAILY GINA Last Admin: 10/03/17 15:39 Dose: 1 patch Patch Removal (Remove Old Patch) 1 each T-DERMAL DAILY [facility]INA Sodium Chloride (Ns Flush) 2 ml IV.FLUSH PRN PRN PRN Reason: FLUSH AFTER USING IV ACCESS Allergies Allergy/AdvReac Type Severity Reaction Status Date / Time No Known Allergies Allergy Verified 10/02/17 18:50 Home Medications Medication Instructions Recorded Confirmed Type aspirin 81 mg PO DAILY 10/03/17 10/03/17 History Exam Vital signs: Vital Signs 10/03/17 12:00 10/03/17 13:50 10/03/17 18:26 Temperature 98.4 F 98.3 F 97.4 F L Pulse Rate 80 66 93 H Respiratory Rate 18 18 Blood Pressure 146/88 H 142/80 H 144/80 H Pulse Oximetry 96 98 100 10/03/17 20:00 10/04/17 05:59 Temperature 98.2 F Pulse Rate 85 Respiratory Rate 16 Blood Pressure 128/75 Pulse Oximetry 100 100 Intake & Output 10/03/17 10/04/17 10/04/17 18:59 06:59 18:59 Weight 66.3 kg Other: Weight On Admission 66.3 kg Narrative: GENERAL: This is a well-nourished, well-developed patient, in no apparent distress.. GASTROINTESTINAL: Abdomen soft, non-tender, nondistended. Normal active bowel sounds MUSCULOSKELETAL: Extremities without clubbing, cyanosis, or edema. NEURO: Alert & Oriented to self and place. Tangential pressured speech distractible at times extraocular movements intact OU 3 2 mm no facial asymmetry tongue midline moving all 4 extremity gravity - Constitutional no acute distress - Routine HEENT Exam Head: Present: normocephalic Eye: Present: EOMI Results - Labs CBC & Chem 7: 10/02/17 19:35 10/04/17 06:55 Labs: Laboratory Results - last 24 hr 10/04/17 06:55 Sodium 142 Potassium 3.5 Chloride 109 H Carbon Dioxide 25.5 Anion Gap 8 BUN 7 Creatinine 0.66 Estimated GFR Greater than 89 Random Glucose 92 Calcium 8.8 Triglycerides 68 Cholesterol 114 L LDL Cholesterol, Calc 44 HDL Cholesterol 56.1 Cholesterol/HDL Ratio 2.03 Review/Management - Diagnosis (1) Marijuana use Code(s): F12.90 - Cannabis use, unspecified, uncomplicated Status: Acute Current Visit: Yes (2) Kat Code(s): F30.9 - Manic episode, unspecified Status: Acute Current Visit: Yes - Review/Management Plan: Appears to be primary psychiatric and not neurologic Recommendations Check EEG B12, TSH, ammonia, RPR We will follow peripherally
--- NOTE | 2017-10-04 11:45 | P.CON ---
History of Present Illness Service: Hospitalist Consult date: 10/04/17 Requesting Physician: Jimmy Truong Reason for Consult: Medical management Primary Care Provider: No Primary Care Physician Chief Complaint: Question seizure History of Present Illness: 57-year-old male who voluntarily reported to the emergency room for increasingly odd behavior. He complained of auditory hallucinations and endorsed intermittent suicidal idealization to ED staff. Self-admitted history of previous EtOH use however he quit in 2007. Positive for cannabis at admit. Denies past medical history; no prior records found. There was some question of seizure activity at admit and neurology was consulted. Patient says that he is doing well. Denies any chest pain or shortness of breath. Denies any nausea vomiting or diarrhea. Appears to be distracted and not interested in answering my questions. Nursing reports no adverse events or concerns. Review of Systems All other systems reviewed negative except as stated in HPI PMF[facility] - History History Provided By: Patient - Medical / Surgical Hx Neg / Unobtainable Medical Problems Denied: Yes Surgical History: No Previous Surgery - Medical History Medical History: Medical History (Last Reviewed 10/04/17 @ 14:04 by TAVON Meehan) Patient denies medical problems - Surgical History Surgical History: Surgical History (Last Reviewed 10/04/17 @ 14:04 by TAVON Meehan) No history of previous surgery - Family History Family History: Family History (Last Reviewed 10/04/17 @ 14:04 by TAVON Meehan) Other Bipolar disorder - Tobacco History Second Hand Smoke Exposure: No Tobacco Use In Past 30 Days: Yes Smoking Status: Heavy tobacco smoker Tobacco Type: Cigarettes - Alcohol History How Often Do You Have a Drink Containing Alcohol: Never - Substance Use History Substance History: Past History - Substance Use Type Alcohol Status: Sustained Remission Route Used: By Mouth Last Used: 10 years ago Comment: completed rehab in 2007 in [place] for etoh abuse - Travel History Recent Travel in the [place] Within the Last 8 Weeks: No Recent Travel Out of the Country Within the Last 8 Weeks: No - Immunization History Tetanus Immunization: Unsure Hx Influenza Vaccine This Season: No Medications and Allergies Active Medications: Active Medications Al Hydrox/Mg Hydrox/Simethicone (Mag-Al Plus Susp Liq) 30 ml PO Q6H PRN PRN Reason: DYSPEPSIA Diphenhydramine HCl (Benadryl) 50 mg PO HS PRN PRN Reason: INSOMNIA Lorazepam (Ativan Inj) 1 mg IV.PUSH ONCE GINA Last Admin: 10/02/17 19:51 Dose: 1 mg Lorazepam (Ativan) 1 mg PO Q6H PRN PRN Reason: MODERATE TO SEVERE ANXIETY Last Admin: 10/04/17 00:38 Dose: 1 mg Lorazepam (Ativan Inj) 1 mg IM Q6H PRN PRN Reason: MODERATE TO SEVERE ANXIETY Nicotine (Habitrol 21 Mg Patch.24 Hr) 1 patch T-DERMAL DAILY GINA Last Admin: 10/03/17 15:39 Dose: 1 patch Patch Removal (Remove Old Patch) 1 each T-DERMAL DAILY [facility] Sodium Chloride (Ns Flush) 2 ml IV.FLUSH PRN PRN PRN Reason: FLUSH AFTER USING IV ACCESS Allergies Allergy/AdvReac Type Severity Reaction Status Date / Time No Known Allergies Allergy Verified 10/02/17 18:50 Home Medications Medication Instructions Recorded Confirmed Type aspirin 81 mg PO DAILY 10/03/17 10/03/17 History Physical Exam Vital signs: Vital Signs 10/03/17 12:00 10/03/17 13:50 10/03/17 18:26 Temperature 98.4 F 98.3 F 97.4 F L Pulse Rate 80 66 93 H Respiratory Rate 18 18 Blood Pressure 146/88 H 142/80 H 144/80 H Pulse Oximetry 96 98 100 10/03/17 20:00 10/04/17 05:59 Temperature 98.2 F Pulse Rate 85 Respiratory Rate 16 Blood Pressure 128/75 Pulse Oximetry 100 100 Intake & Output 10/03/17 10/04/17 10/04/17 18:59 06:59 18:59 Weight 66.3 kg Other: Weight On Admission 66.3 kg Narrative: GENERAL: Well-nourished, well-developed adult male in no obvious distress. SKIN: Warm and dry. HEAD: Atraumatic. Normocephalic. CARDIOVASCULAR: Regular rate and rhythm. RESPIRATORY: No accessory muscle use. Clear to auscultation. Breath sounds equal bilaterally. GASTROINTESTINAL: Abdomen soft, non-tender, non- distended. Positive bowel sounds. MUSCULOSKELETAL: Extremities without clubbing, cyanosis, or edema. No obvious deformities. NEUROLOGICAL: Awake and alert. No obvious cranial nerve deficits. Motor grossly within normal limits. Normal speech. Assessment and Plan - Plan 57-year-old male who voluntarily reported to the emergency room for increasingly odd behavior. He complained of auditory hallucinations and endorsed intermittent suicidal idealization. Self-admitted history of previous EtOH use however he quit in 2007. Positive for cannabis at admit. Denies past medical history; no prior records found. Hospitalist service consulted for medical management. AMS/delusional -Seen and evaluated by neurology who concluded that patient's behavior appears to be primary psychiatric and not neurologic. Hypokalemia -K+ initially 3.4 at admit. Resolved w/out intervention to 3.5 on 10/04/17. Monitor HTN - denies hx -Mild elevation in blood pressure at admit. Resolved to WNL -likely due to agitation. DVT prophylaxis: Patient is ambulatory Discussed with: Patient and nurse Thank you for this consult. We appreciate working with you on the medical management of this patient.
[2017-10-04 12:08] LABS: C-Reactive Protein 0.4 mg/dL (0.00-0.30)
[2017-10-04 12:32] LABS: Thyroid Stimulating Hormone 0.992 uIU/mL (0.358-3.740)
--- NOTE | 2017-10-04 15:13 | P.HPPSY ---
Provisional Diagnosis Admission Date: October 03, 2017 11:42 [place].: Bipolar disorder most recent episode bhavna Competence Certification of Person's Competence To Provide Express and Informed Consent I have personally examined Jose Duenas, a person being served at [facility] on, October 04, 2017 1504. Express and informed consent means consent voluntarily given in writing, by a competent person, after sufficient explanation and disclosure of the subject matter involved to enable the person to make a knowing and willful decision without any element of force, fraud, deceit, duress, or other form of constraint or coercion. This person is 18 years of age or older, is not now known to be incompetent to consent to treatment with a guardian advocate, and does not have a health care surrogate or proxy currently making medical treatment decisions. I have found this person to be one of the following: [xxx] Competent to provide express and informed consent, as defined above, for voluntary admission to this facility and is competent to provide express and informed consent for treatment. He/she has the consistent capacity to make well reasoned, willful, and knowing decisions concerning his or her medical or mental health treatment. The person fully and consistently understands the purpose of the admission for examination/placement and is fully capable of personally exercising all rights assured under [place] [] Incompetent to provide express and informed consent to voluntary admission, and this is incompetent to provide express and informed consent to treatment. The person must be transferred to involuntary status and a petition for a guardian advocate filed with the Circuit Court. [] Refusing to provide express and informed consent to voluntary admission but is competent to provide express and informed consent for treatment. The person must be discharged or transferred to involuntary status. Form shall be completed within 24 hours of a person's arrival at the receiving facility and filed in the clinical record of each person: 1. Admitted on a voluntary basis 2. Permitted to provide express and informed consent to his/her own treatment 3. Allowed to transfer from involuntary to voluntary status 4. Prior to permitting a person to consent to his or her own treatment after having been previously found incompetent to consent to treatment. History of Present Illness Capacity: Has capacity History of Present Illness: Patient 57-year-old white male comes here voluntarily with family given the history of increased manic type behaviors patient seen screen in the ED urine toxicology positive for marijuana. At the present time patient sitting quietly in his room though his speech is somewhat pressured and it is not very rapid. Though he acknowledges racing thoughts rapid pressured speech and poor task completion, risky behaviors including spending money he cannot afford travel that is somewhat risky. He states she has had episodes of this over many years though not to the point where he is ever been hospitalized. He is vague about any auditory or visual hallucinations. Though there is some mild paranoia. He is acknowledged alcoholic that has been sober for 10 years. He is done marijuana within the past month. He is done cocaine in the past he is done hallucinogenic's in the past patient is . Though it appears to have supportive family. Patient denies any physical or sexual abuse. Denies any other significant medical issues at this time for perhaps seizure disorder. Neurology has been consulted. At this time patient meets criteria for further assessment on on a voluntary basis. We will have hospitalist consult will us neurology has consulted with us. We will start the patient on Abilify 5 mg twice daily and monitor - Inpatient Certification I certify that the inpatient services were ordered in accordance with Medicare regulations governing the order. This includes certification that hospital inpatient services are reasonable and necessary and in the case of services not specified as inpatient-only under 42 CFR 419.22(n), that they are appropriately provided as inpatient services in accordance to with the 2-midnight benchmark under 43 CFR 412.3(e) I certify that inpatient psychiatric hospital services are medically necessary. Evaluation and treatment and/or diagnostic testing are expected to improve the patient's condition. The patient needs on a daily basis, active treatment furnished directly by or requiring the supervision of inpatient psychiatric facility personnel. Estimated Total Length of Stay (Days): 7 Plans for Post Hospital Care: Not yet determined Review of Systems All other systems reviewed negative except as stated in HPI PMFSH - History History Provided By: Patient - Medical / Surgical Hx Neg / Unobtainable Medical Problems Denied: Yes - Medical History Medical History: Medical History (Last Reviewed 10/04/17 @ 14:04 by TAVON Meehan) Patient denies medical problems - Surgical History Surgical History: Surgical History (Last Reviewed 10/04/17 @ 14:04 by TAVON Meehan) No history of previous surgery - Family History Family History: Family History (Last Reviewed 10/04/17 @ 14:04 by TAVON Meehan) Other Bipolar disorder - Tobacco History Second Hand Smoke Exposure: No Tobacco Use In Past 30 Days: Yes Smoking Status: Heavy tobacco smoker Tobacco Type: Cigarettes - Alcohol History How Often Do You Have a Drink Containing Alcohol: Never - Substance Use History Substance History: Past History - Substance Use Type Alcohol Status: Sustained Remission Route Used: By Mouth Last Used: 10 years ago Comment: completed rehab in 2007 in [place] for etoh abuse - Travel History Recent Travel in the [facility] Within the Last 8 Weeks: No Recent Travel Out of the Country Within the Last 8 Weeks: No - Immunization History Tetanus Immunization: Unsure Hx Influenza Vaccine This Season: No Quality Measures - Psychiatric History Psychological trauma history: Patient denies Violence risk to others in the last 6 months: Low Violence risk to self in the last 6 months: Low - Substance Abuse History Drug or alcohol use in the past 12 months: No alcohol in 10 years, marijuana 1-2 weeks ago - Patient Strengths Patient's strengths (minimum of 2): Patient verbal able access healthcare has supportive family Medications and Allergies Active Medications: Active Medications Al Hydrox/Mg Hydrox/Simethicone (Mag-Al Plus Susp Liq) 30 ml PO Q6H PRN PRN Reason: DYSPEPSIA Diphenhydramine HCl (Benadryl) 50 mg PO HS PRN PRN Reason: INSOMNIA Lorazepam (Ativan Inj) 1 mg IV.PUSH ONCE GINA Last Admin: 10/02/17 19:51 Dose: 1 mg Lorazepam (Ativan) 1 mg PO Q6H PRN PRN Reason: MODERATE TO SEVERE ANXIETY Last Admin: 10/04/17 00:38 Dose: 1 mg Lorazepam (Ativan Inj) 1 mg IM Q6H PRN PRN Reason: MODERATE TO SEVERE ANXIETY Nicotine (Habitrol 21 Mg Patch.24 Hr) 1 patch T-DERMAL DAILY GINA Last Admin: 10/03/17 15:39 Dose: 1 patch Patch Removal (Remove Old Patch) 1 each T-DERMAL DAILY [facility] Sodium Chloride (Ns Flush) 2 ml IV.FLUSH PRN PRN PRN Reason: FLUSH AFTER USING IV ACCESS Allergies Allergy/AdvReac Type Severity Reaction Status Date / Time No Known Allergies Allergy Verified 10/02/17 18:50 Home Medications Medication Instructions Recorded Confirmed Type aspirin 81 mg PO DAILY 10/03/17 10/03/17 History Results - Labs CBC & Chem 7: 10/02/17 19:35 10/04/17 06:55 Labs: Laboratory Results - last 24 hr 10/04/17 10/04/17 10/04/17 06:55 11:18 11:18 Sodium 142 Potassium 3.5 Chloride 109 H Carbon Dioxide 25.5 Anion Gap 8 BUN 7 Creatinine 0.66 Estimated GFR Greater than 89 Random Glucose 92 Calcium 8.8 Ammonia 34 H C-Reactive Protein 0.40 H Triglycerides 68 Cholesterol 114 L LDL Cholesterol, Calc 44 HDL Cholesterol 56.1 Cholesterol/HDL Ratio 2.03 Vitamin B12 233 TSH 0.992 HIV 1&2 Ab/P24 Ag 4thGn 10/04/17 11:18 Sodium Potassium Chloride Carbon Dioxide Anion Gap BUN Creatinine Estimated GFR Random Glucose Calcium Ammonia C-Reactive Protein Triglycerides Cholesterol LDL Cholesterol, Calc HDL Cholesterol Cholesterol/HDL Ratio Vitamin B12 TSH HIV 1&2 Ab/P24 Ag 4thGn Nonreactive Exam Vital signs: Vital Signs 10/03/17 18:26 10/03/17 20:00 10/04/17 05:59 Temperature 97.4 F L 98.2 F Pulse Rate 93 H 85 Respiratory Rate 16 Blood Pressure 144/80 H 128/75 Pulse Oximetry 100 100 100 Intake & Output 10/03/17 10/04/17 10/04/17 18:59 06:59 18:59 Weight 66.3 kg Other: Weight On Admission 66.3 kg Narrative: Patient sitting quietly in his room he is in no acute distress, no complaints of chest pain no complaints of respiratory distress, no complaints of abdominal pain patient moving all 4 extremities without difficulty Mental Status Examination Appearance: Appropriate, Disheveled Consciousness: Alert Orientation: x4 Motor Activity: Normal gait Speech: Pressured, Rapid, Stuttering (at times) Language: Other (patient speaking fluently ) Fund of Knowledge: Adequate Attention and Concentration: Easily distracted Memory: Unremarkable Mood: Anxious, Manic Affect: Labile, Anxious Thought Process & Associations: Circumstantial, Tangential Thought Content: Racing thoughts, Delusional Hallucination Type: None Delusion Type: Paranoid Suicidal Ideation: No Suicidal Plan: No Suicidal Intention: No Homicidal Ideation: No Homicidal Plan: No Homicidal Intention: No Insight: Fair Judgment: Impulsive Assessment and Plan - Assessment (1) Bipolar disorder, most recent episode manic Code(s): F31.10 - Bipolar disorder, current episode manic without psychotic features, unspecified Status: Acute - Plan Plan: Estimated LOS: [5] days At this time patient meets criteria for further inpatient hospitalization on a voluntary basis. We will start him on Abilify 5 mg twice daily the hospitalist consult will us also will also attempt to get further formation from patient's family Justification for Continued Inpatient Stay: At this time patient would decompensate a place to the lower level of care Discharge Planning: To be determined Request Healthcare Surrogate/Guardian Advocate?: No
[2017-10-04 18:18] LABS: Hemoglobin A1c 5.2 % (4.3-6.0)
--- NOTE | 2017-10-04 19:46 | MR ---
EXAM DATE: 10/04/2017 7:30 PM EDT AGE/SEX: 57 years / Male INDICATIONS: CVA. CLINICAL DATA: This is the patient's initial encounter. Patient reports that signs and symptoms have been present for 1 day and indicates a pain score of 1/10. MEDICAL/SURGICAL HISTORY: None. . Left wrist sx. COMPARISON: No prior exams available for comparison. TECHNIQUE: Multiplanar, multisequence examination of the brain was performed without contrast. FINDINGS: Minimal white matter ischemic changes. No mass effect or midline shift. No hydrocephalus. No evidence for recent infarct. No sellar mass. No abnormal extra-axial fluid collection CONCLUSION: 1. No recent infarct. No mass effect or shift. No acute findings. Minimal white matter ischemic christina ges. Electronically signed by: Ramírez Hercules MD 10/04/2017 7:45 PM EDT
[2017-10-04] MEDS: ARIPiprazole 5 MG Tablet PO SCH (21:45)
[2017-10-05] MEDS: ARIPiprazole 5 MG Tablet PO SCH ×2 (09:30→20:50)
--- NOTE | 2017-10-05 10:12 | P.PN ---
Subjective Interval history: Patient is seen sitting quietly in room. He tells me he is feeling much better today and that he is happy with how the Abilify has calmed him down. It is causing a small amount of GI upset but nothing significant - he has not had any vomiting or diarrhea. He has had a good appetite. Is voiding normally. No shortness of breath or chest pain. No chills or fever. Physical Exam Vital signs: Vital Signs 10/04/17 18:05 10/05/17 04:11 10/05/17 06:22 Temperature 98.1 F 98.1 F Pulse Rate 81 85 Respiratory Rate 18 17 Blood Pressure 154/78 H 135/93 H Pulse Oximetry 99 100 98 Narrative: GENERAL: Well-nourished, well-developed adult male in no obvious distress. SKIN: Warm and dry. HEAD: Atraumatic. Normocephalic. CARDIOVASCULAR: Regular rate and rhythm. RESPIRATORY: No accessory muscle use. Clear to auscultation. Breath sounds equal bilaterally. GASTROINTESTINAL: Abdomen soft, non-tender, non- distended. Positive bowel sounds. MUSCULOSKELETAL: Extremities without clubbing, cyanosis, or edema. No obvious deformities. NEUROLOGICAL: Awake and alert. No obvious cranial nerve deficits. Results - Labs CBC & Chem 7: 10/02/17 19:35 10/04/17 06:55 Laboratory Results - last 24 hr 10/04/17 10/04/17 10/04/17 06:55 11:18 11:18 Hemoglobin A1c 5.2 Ammonia 34 H C-Reactive Protein 0.40 H Vitamin B12 233 TSH 0.992 RPR HIV 1&2 Ab/P24 Ag 4thGn 10/04/17 10/04/17 11:18 11:18 Hemoglobin A1c Ammonia C-Reactive Protein Vitamin B12 TSH RPR Nonreactive HIV 1&2 Ab/P24 Ag 4thGn Nonreactive - Imaging Impressions Head MRI 10/04/17 00:00 CONCLUSION: 1. No recent infarct. No mass effect or shift. No acute findings. Minimal white matter ischemic changes. Assessment and Plan - Plan 57-year-old male who voluntarily reported to the emergency room for increasingly odd behavior. He complained of auditory hallucinations and endorsed intermittent suicidal idealization. Self-admitted history of previous EtOH use however he quit in 2007. Positive for cannabis at admit. Denies past medical history; no prior records found. Hospitalist service consulted for medical management. AMS/delusional -Seen and evaluated by neurology who concluded that patient's behavior appears to be primary psychiatric and not neurologic. Hypokalemia -K+ initially 3.4 at admit. Resolved w/out intervention to 3.5 on 10/04/17. Monitor HTN - denies hx -Mild elevation in blood pressure at admit. Resolved to WNL -likely due to agitation. DVT prophylaxis: Patient is ambulatory Discussed with: Patient and nurse Patient appears to be stable medically. Hospitalist service will sign off. Please reconsult if needed.
--- NOTE | 2017-10-05 10:32 | ECG ---
Date Performed: 10/04/2017 Time Performed: 13:55:34 PTAGE: 57 years EKG: Sinus rhythm NORMAL ECG Since the PREVIOUS TRACING , no significant change noted PREVIOUS TRACIN10/02/2017 21.53 DOCTOR: Jennyfer Astudillo Interpretating Date/Time 10/05/2017 10:31:18
--- NOTE | 2017-10-05 12:44 | P.PNPSY ---
Subjective Remarks: Patient seen and blancas with nurse Sumaya, chart reviewed, patient compliant medications. Patient's dates he is feeling somewhat slower calm her thoughts are still fast. He is compliant with medications. He denies suicidality or voices at this time. We will discontinue all as needed Ativan orders and offer her Atarax and a as needed basis Review of Systems All other systems reviewed negative except as stated in HPI Mental Status Examination Appearance: Appropriate, Disheveled Consciousness: Alert Orientation: x4 Motor Activity: Normal gait Speech: Pressured, Rapid, Stuttering (at times) Language: Other (patient speaking fluently ) Fund of Knowledge: Adequate Attention and Concentration: Easily distracted Memory: Unremarkable Mood: Anxious (Somewhat calmer ), Manic (Somewhat calmer) Affect: Other (Good range and intensity) Thought Process & Associations: Circumstantial (Improving), Tangential ( Improving) Thought Content: Racing thoughts (Improving), Delusional (Improving) Hallucination Type: None Delusion Type: Paranoid Suicidal Ideation: No Suicidal Plan: No Suicidal Intention: No Homicidal Ideation: No Homicidal Plan: No Homicidal Intention: No Insight: Fair Judgment: Impulsive Assessment and Plan - Assessment (1) Bipolar disorder, most recent episode manic Code(s): F31.10 - Bipolar disorder, current episode manic without psychotic features, unspecified Status: Acute - Plan Plan: Patient complaint medications, the mean is softening, psychotic flavor is also softening for now continue treatment to medication adjustments above Justification for Continued Inpatient Stay: At this time patient would decompensate a place to a lower level of care Discharge Planning: To be determined Request Healthcare Surrogate/Guardian Advocate?: No
--- NOTE | 2017-10-05 19:00 | MG ---
cc: Doretha Helton MD, Dalia MD EEG NUMBER [id number] REFERRING PHYSICIAN: Dr. Fletcher. Awake, drowsy, asleep. Hyperventilation excellent effort as well as photic stimulation. MRI no infarct, no mass effect, no shift. A 57-year-old man admitted with delusional behavior, flight of ideas, grandiose thoughts, questionable seizures, history of tobacco the only past medical history. MEDICATIONS: Abilify Nicotine. DESCRIPTION OF RECORD: The patient has an alpha rhythm of 9 and 9-1/2 Hz, 20-30 microvolts, well organized symmetrical background. Photic stimulation does elicit a posterior driving response. This was done at the beginning portion of the study. No epileptiform features during that part. Hyperventilation causes a lot of myogenic artifact. Overall, good buildup, well organized symmetrical background, good effort. EKG looks sinus. No epileptiform features. IMPRESSION: Normal appearing electroencephalogram without any epileptiform features. Clinical correlation. MD LIAN Ross/ , 06:42 PM , 06:47 PM
[2017-10-06] MEDS: ARIPiprazole 5 MG Tablet PO SCH (08:42)
--- NOTE | 2017-10-06 15:04 | P.PNPSY ---
Subjective Remarks: Patient seen and blancas with nurse Keely, patient stating his thoughts are still somewhat racing and tense little better. Vague about any perceptual abnormality. Though he denies suicidality. For now we will increase Abilify to 10 mg a.m. 5 mg at bedtime continue treatment Review of Systems All other systems reviewed negative except as stated in HPI Mental Status Examination Appearance: Appropriate Consciousness: Alert Orientation: x4 Motor Activity: Normal gait Speech: Pressured, Rapid, Stuttering (Improving) Language: Adequate Fund of Knowledge: Adequate Attention and Concentration: Easily distracted (Improving) Memory: Unremarkable Mood: Anxious (Somewhat calmer ), Manic (Somewhat calmer) Affect: Other (Good range and intensity) Thought Process & Associations: Circumstantial (Improving), Tangential ( Improving) Thought Content: Racing thoughts (Improving), Delusional (Improving) Hallucination Type: None Delusion Type: Paranoid Suicidal Ideation: No Suicidal Plan: No Suicidal Intention: No Homicidal Ideation: No Homicidal Plan: No Homicidal Intention: No Insight: Fair Judgment: Impulsive Assessment and Plan - Assessment (1) Bipolar disorder, most recent episode manic Code(s): F31.10 - Bipolar disorder, current episode manic without psychotic features, unspecified Status: Acute - Plan Plan: Patient continues manic though somewhat softer, please see medication adjustment above Justification for Continued Inpatient Stay: At this time patient would decompensate a place to a lower level of care Discharge Planning: To be determined Request Healthcare Surrogate/Guardian Advocate?: No
[2017-10-06] MEDS ORDERED: ARIPiprazole 5 MG Tablet PO SCH (21:00)
[2017-10-07] MEDS: ARIPiprazole 10 MG Tablet PO SCH (09:16)
--- NOTE | 2017-10-07 14:13 | P.PNPSY ---
Subjective Remarks: Patient seen in day room with floor staff, chart reviewed, patient compliant medication. Patient states his thoughts continue to slow though she is still somewhat intense and intrusive. He denies suicidality homicidality voice or visions. For now we will increase Abilify to 10 mg twice daily. Review of Systems All other systems reviewed negative except as stated in HPI Mental Status Examination Appearance: Appropriate Consciousness: Alert Orientation: x4 Motor Activity: Normal gait Speech: Pressured, Rapid, Stuttering (Improving) Language: Adequate Fund of Knowledge: Adequate Attention and Concentration: Easily distracted (Improving) Memory: Unremarkable Mood: Anxious (Somewhat calmer ), Manic (Somewhat calmer) Affect: Other (Good range and intensity) Thought Process & Associations: Circumstantial (Improving), Tangential ( Improving) Thought Content: Racing thoughts (Improving), Delusional (Improving) Hallucination Type: None Delusion Type: Paranoid Suicidal Ideation: No Suicidal Plan: No Suicidal Intention: No Homicidal Ideation: No Homicidal Plan: No Homicidal Intention: No Insight: Fair Judgment: Impulsive Assessment and Plan - Assessment (1) Bipolar disorder, most recent episode manic Code(s): F31.10 - Bipolar disorder, current episode manic without psychotic features, unspecified Status: Acute - Plan Plan: Patient continues somewhat manic though he is slowly improving. Please see medication adjustment above Justification for Continued Inpatient Stay: At this time patient would decompensate a place to a lower level of care Discharge Planning: To be determined Request Healthcare Surrogate/Guardian Advocate?: No
[2017-10-07] MEDS: ARIPiprazole 5 MG Tablet PO SCH (21:19)
[2017-10-08] MEDS: ARIPiprazole 10 MG Tablet PO SCH (09:00)
--- NOTE | 2017-10-08 20:24 | P.PNPSY ---
Subjective Remarks: Reviewed electronic medical records and discussed case with staff. Follow-up was conducted in the milieu. Patient reports that he is feeling a lot better. States that he sleeping but he does not feels long enough. Reports sleeping about 4 hours per night. States that his appetite is been good. He reports that he has a decrease in his racing thoughts and he seems more clear and focused. He has been observed socializing with other patients mood is good his affect is euthymic. Mental Status Examination Appearance: Appropriate Consciousness: Alert Orientation: x4 Motor Activity: Normal gait Speech: Pressured, Rapid, Stuttering (Improving) Language: Adequate Fund of Knowledge: Adequate Attention and Concentration: Easily distracted (Improving) Memory: Unremarkable Mood: Anxious (Somewhat calmer ), Manic (Somewhat calmer) Affect: Other (Good range and intensity) Thought Process & Associations: Circumstantial (Improving), Tangential ( Improving) Thought Content: Racing thoughts (Improving), Delusional (Improving) Hallucination Type: None Delusion Type: Paranoid Suicidal Ideation: No Suicidal Plan: No Suicidal Intention: No Homicidal Ideation: No Homicidal Plan: No Homicidal Intention: No Insight: Fair Judgment: Impulsive Assessment and Plan - Assessment (1) Kat Code(s): F30.9 - Manic episode, unspecified Status: Acute - Plan Plan: Patient will be reevaluated Tuesday by the attending psychiatrist. Continue with current treatment plan. Justification for Continued Inpatient Stay: Moving this patient to a less restrictive environment would likely result in decompensation. Request Healthcare Surrogate/Guardian Advocate?: No
[2017-10-08] MEDS: ARIPiprazole 5 MG Tablet PO SCH (22:19)
[2017-10-09] MEDS: ARIPiprazole 10 MG Tablet PO SCH (09:27)
--- NOTE | 2017-10-09 14:30 | P.PNPSY ---
Subjective Remarks: Reviewed electronic medical records and discussed case with staff. Follow-up was conducted in the milieu. Patient was found playing a game of [place] [place]. He reports that he slept well and he has a good appetite. He has no complaints today. His mood is good his affect is euthymic. He is hopeful for discharge tomorrow. Mental Status Examination Appearance: Appropriate Consciousness: Alert Orientation: x4 Motor Activity: Normal gait Speech: Pressured, Rapid, Stuttering (Improving) Language: Adequate Fund of Knowledge: Adequate Attention and Concentration: Easily distracted (Improving) Memory: Unremarkable Mood: Anxious (Somewhat calmer ), Manic (Somewhat calmer) Affect: Other (Good range and intensity) Thought Process & Associations: Circumstantial (Improving), Tangential ( Improving) Thought Content: Racing thoughts (Improving), Delusional (Improving) Hallucination Type: None Delusion Type: Paranoid Suicidal Ideation: No Suicidal Plan: No Suicidal Intention: No Homicidal Ideation: No Homicidal Plan: No Homicidal Intention: No Insight: Fair Judgment: Impulsive Assessment and Plan - Assessment (1) Kat Code(s): F30.9 - Manic episode, unspecified Status: Acute - Plan Plan: Patient will be reevaluated tomorrow by the attending psychiatrist. Continue with current treatment plan. Hopeful for discharge tomorrow. Justification for Continued Inpatient Stay: Moving this patient to a less restrictive environment would likely result in decompensation. Request Healthcare Surrogate/Guardian Advocate?: No
[2017-10-09] MEDS: ARIPiprazole 5 MG Tablet PO SCH (20:07)
[2017-10-10] MEDS: ARIPiprazole 10 MG Tablet PO SCH (09:44)
--- NOTE | 2017-10-10 11:26 | P.DSPSY ---
Psychiatry Discharge Summary Inpatient Psychiatric care?: Yes Advance Directives: No Mental Health Advance Directive: No Health Care Proxy: No - Admission Admission Date: October 03, 2017 11:42 - Admission Diagnosis (1) Bipolar disorder, most recent episode manic Code(s): F31.10 - Bipolar disorder, current episode manic without psychotic features, unspecified Brief History: Patient 57-year-old white male comes here voluntarily with family given the history of increased manic type behaviors patient seen screen in the ED urine toxicology positive for marijuana. At the present time patient sitting quietly in his room though his speech is somewhat pressured and it is not very rapid. Though he acknowledges racing thoughts rapid pressured speech and poor task completion, risky behaviors including spending money he cannot afford travel that is somewhat risky. He states she has had episodes of this over many years though not to the point where he is ever been hospitalized. He is vague about any auditory or visual hallucinations. Though there is some mild paranoia. He is acknowledged alcoholic that has been sober for 10 years. He is done marijuana within the past month. He is done cocaine in the past he is done hallucinogenic's in the past patient is . Though it appears to have supportive family. Patient denies any physical or sexual abuse. Denies any other significant medical issues at this time for perhaps seizure disorder. Neurology has been consulted. At this time patient meets criteria for further assessment on on a voluntary basis. We will have hospitalist consult will us neurology has consulted with us. We will start the patient on Abilify 5 mg twice daily and monitor Tobacco Use In Past 30 Days: Yes How Often Do You Have a Drink Containing Alcohol: Never Hospital Course: Patient's hospital course was uneventful, he showed compliance with medication from day of admission. There is no significant behavioral problems. The adjustment of the Abilify gradually resolved bhavna the intrusiveness of the rapid pressured speech. Patient had a good weekend. At this time patient no longer meets criteria for inpatient psychiatric hospitalization. Thus patient will be discharged today to himself with Rx 1 month to follow-up [facility] outpatient medication management - Discharge Discharge Date: 10/10/17 - Discharge Diagnosis (1) Bipolar disorder, most recent episode manic Diagnosis: Principal Code(s): F31.10 - Bipolar disorder, current episode manic without psychotic features, unspecified Status: Acute Discharge Disposition: Home - Discharge Instructions Discharge Diet: Regular Diet Activities You Can Perform: Regular- No Restrictions - Discharge Time > 30 minutes Mental Status Examination Appearance: Appropriate Consciousness: Alert Orientation: x4 Motor Activity: Normal gait Speech: Pressured, Rapid, Stuttering (Improving) Language: Adequate Fund of Knowledge: Adequate Attention and Concentration: Easily distracted (Improving) Memory: Unremarkable Mood: Anxious (Somewhat calmer ), Manic (Somewhat calmer) Affect: Other (Good range and intensity) Thought Process & Associations: Circumstantial (Improving), Tangential ( Improving) Thought Content: Racing thoughts (Improving), Delusional (Improving) Hallucination Type: None Delusion Type: Paranoid Suicidal Ideation: No Suicidal Plan: No Suicidal Intention: No Homicidal Ideation: No Homicidal Plan: No Homicidal Intention: No Insight: Fair Judgment: Impulsive Discharge/Advance Care Plan - Results Vital Signs: Last Vital Signs Temp 97.3 F L 10/09/17 18:35 Pulse 95 H 10/09/17 18:35 Resp 18 10/09/17 18:35 BP 136/90 10/09/17 18:35 Pulse Ox 97 10/09/17 18:35 Lab Results: Laboratory Results Hemoglobin A1c 5.2 % (4.3-6.0) 10/04/17 06:55 Triglycerides 68 mg/dL (42-150) 10/04/17 06:55 Cholesterol 114 mg/dL (120-200) L 10/04/17 06:55 LDL Cholesterol, Calc 44 mg/dL (0-99) 10/04/17 06:55 HDL Cholesterol 56.1 mg/dL (40.0-60.0) 10/04/17 06:55 TSH 0.992 uIU/mL (0.358-3.740) 10/04/17 11:18 Urine Culture Comments Culture not ind 10/02/17 19:55 Summary of Procedures: None done Imaging: ITS Impressions Chest X-Ray 10/02/17 19:26 CONCLUSION: Negative for an acute process Head CT 10/02/17 19:26 CONCLUSION: 1. Negative for an acute process. . Head MRI 10/04/17 00:00 CONCLUSION: 1. No recent infarct. No mass effect or shift. No acute findings. Minimal white matter ischemic changes. Pending Results: None - Medications Number of antipsychotic medications at discharge: 1 - Discharge Care Plan Goals to Promote Your Health: * To prevent worsening of your condition and complications * To maintain your health at the optimal level Directions to Meet Your Goals: Take your medications as prescribed Follow your dietary instruction Follow activity as directed Keep your appointments as scheduled Take your immunizations and boosters as scheduled If your symptoms worsen call your PCP, if no PCP go to Urgent Care Center or Emergency Room For 27/09 questions related to your inpatient stay or results of tests pending at discharge, please contact Dr. Jimmy Truong MD at Smoking is Dangerous to Your Health. Avoid second hand smoking
== END 2017-10-10 14:20 | disposition home or self-care (01) ==
LOC: EDBD → NEPC 18:43 → NEDA 10-03 11:42 → H260 10-03 14:07
PROVIDERS: ADMIT Psychiatry & Neurology Psychiatry; ATTEND Psychiatry & Neurology Psychiatry